=== PATIENT | female | born 1985 | race Caucasian/White ===

== ENCOUNTER → 2024-01-11 10:34 | Outpatient (REF) | payer OTHER, SELFPAY | LOC: RCS 10:34 | PROVIDERS: ATTENDING PHYSICIAN Internal Medicine Interventional Cardiology; FAMILY PHYSICIAN Internal Medicine | DX: I10 Essential (primary) hypertension (principal); R06.02 Shortness of breath; R00.0 Tachycardia, unspecified; R00.2 Palpitations; Z82.49 Family history of ischemic heart disease and other diseases of the circulatory system; R07.89 Other chest pain | CPT/HCPCS: 93017 ==

== ENCOUNTER 2025-05-29 12:24 | Emergency (ER) | payer OTHER, SELFPAY ==
[2025-05-29 12:29] VITALS: BP 145/96
--- NOTE | 2025-05-29 12:32 | ED.GENMED ---
History of Present Illness
General
Chief Complaint: Chest Pain
Source: patient
Exam Limitations: none
Time Seen by Provider: 05/29/25 12:31
History of Present Illness
History of Present Illness:
40yoF with no significant past medical history presenting for evaluation of chest pain. Patient woke up this morning around 7 AM noticing a discomfort in the right side of her chest. She describes a squeezing pain that is intermittent. Pain
radiates to the right axillary region. Pain seems to come on randomly and nothing seems to make the pain better or worse. She denies any trauma. She is otherwise asymptomatic and denies any shortness of breath, pleuritic pain, fevers, cough,
abdominal pain, rash, calf pain, leg swelling. Patient sees cardiology for recurrent dizziness. She had an exercise stress test in January 2024 which was normal.
Past History
Past History
ED Past Medical History: None; Negative IDDM
ED Past Surgical History: None
Patient has exhibited threatening behavior?: No
PSI?: No
Social History
Tobacco: Non-smoker
Alcohol: None
Drug: None
Personal:
Living: with family
Employment: Employed (hairdresser)
Family History
Family History: Other (Noncontributory)
Phy Exam
General Physical Exam
General Presentation: well appearing and no apparent distress
General Skin: warm and dry
General Habitus: normal
General Mental: alert
ENT Exam
ENT Exam: normocephalic
Cardiovascular Exam
Cardiovascular Exam: regular rate/rhythm, no edema, no murmur and normal peripheral pulses (2+ PT pulses bilaterally)
Pulmonary Exam
Pulmonary Exam: lungs clear, no respiratory distress, no rales, chest non tender, no crackles, no rhonchi and no wheezing
Neurological Exam
Neurological Exam: alert
[place] Coma Scale
Eye Opening: Spontaneous
Verbal Response: Oriented
Motor Response: Obeys Commands
GCS Total Score: 15
Skin Exam
Skin Exam: normal color and warm/dry
Psychiatric Exam
Psychiatric Exam: normal mood/affect
Scores
Heart Score for Chest Pain Patients
STEMI patient?: No
History: Slightly or Non-Suspicious
ECG: Normal
Age: </= 45 years
Risk Factors: No Risk Factors
Troponin: </= Normal Limit
Heart Score for Chest Pain Patients: 0
Heart Score Risk: 2.5% MACE over next 6 weeks
Course
Orders/Labs/Results
Orders:
Orders
05/29/25 12:25
Electrocardiogram (*1) Urgent
Reason for Study: Chest Pain
EKG- Treatment ONCE
05/29/25 12:42
Cardiac Monitoring- Treatment ONCE
05/29/25 12:50
Complete Blood Count/With Diff Urgent
Comprehensive Metabolic Panel Urgent
D-Dimer Urgent
Troponin I Urgent
05/29/25 13:28
CR Chest - 2 Views Urgent
Comment:
Reason For Exam: R sided chest pain
Abnormal Lab Results
05/29/25
12:50
WBC 4.6 L 10^3/uL
(4.8-10.8)
Hct 36.4 L %
(37.0-47.0)
05/29/25 12:50
05/29/25 12:50
Vital Signs
Initial and Last Documented VS:
Initial Vital Signs
Temp Pulse Resp BP Pulse Ox
98.4 F 83 18 145/96 100
05/29/25 12:29 05/29/25 12:29 05/29/25 12:29 05/29/25 12:29 05/29/25 12:29
Last Documented Vital Signs
Temp Pulse Resp BP Pulse Ox
98.4 F 71 15 107/92 99
05/29/25 12:29 05/29/25 15:15 05/29/25 15:15 05/29/25 15:00 05/29/25 15:15
MDM/Problems Addressed
Differential Diagnosis Includes:
40yoF here with intermittent R sided chest/axillary pain that began this morning. Otherwise asymptomatic. No pleuritic pain or SOB. VSS and oxygen saturation 100% on room air. No rash noted on exam and there is no reproducible chest tenderness.
Differential diagnosis includes but is not limited to: Musculoskeletal/muscle spasms, pneumonia, pleurisy, early shingles, doubt PE, doubt ACS
Initial ED plan: EKG obtained in triage shows NSR without ischemic changes. Will check cardiac labs, D-dimer, and CXR vs. CT depending on D-dimer results.
*Pulse Oximetry
SaO2: 100
Oxygen Mode of Delivery: Room air
Patient hypoxic: no
*EKG
Interpreted by ED Provider?: Yes
EKG Intrepretation Date: 05/29/25
Heart Rate: 77
Rate: normal
Rhythm: sinus
[place]: normal axis
Interval: normal interval
QRS Pattern: normal QRS
Ischemia: no ischemia
*Critical Care Note
Total Time (30-74mins, 75-104mins- exclusive of procedures): Not Applicable
Update Note
Update Note:
Labs unremarkable and troponin undetectable. D-dimer normal making PE very unlikely. Chest x-ray clear. HEART score is 0. No indication for hospitalization. Unclear etiology of symptoms. She was advised to monitor the area for a rash. Patient
instructed to follow-up with her PCP and ED return precautions reviewed. She was discharged in stable condition.
ED Attending Note
-
Portions of this chart may have been created with voice recognition software.� Occasional wrong word or��sound alike� substitutions may have occurred due to the inherent limitations of voice recognition software.
Discharge Plan
Departure
Patient Disposition: Home (Routine Discharge)
Date of Disposition: 05/29/25
Time of Disposition: 15:11
Patient with high blood pressure during this ER visit?: No
Discharge Problem:
Atypical chest pain
Instructions: Chest Pain PCP Follow Up
Prescriptions:
No Action
No Current Medications
0
Referrals:
Emily Murray, DO [Family Provider, Internal Medicine]
Activity Restrictions/Additional Instructions:
Please follow-up with your family doctor in 3-4 days. Return to the ER with any new or worsening symptoms.
Interventions
Interventions:
*Risk Screen - Suicide Last Done: 05/29/25 12:29
*General Assessment Last Done: 05/29/25 12:29
*Neglect/Abuse Screening Last Done: 05/29/25 12:52
*ED- Fall Risk Assessment Last Done: 05/29/25 12:52
*ED COVID-19 Vaccine History Last Done: 05/29/25 12:33
ED- Cardiac Assessment Last Done: 05/29/25 12:52
*Nursing Disposition Last Done: 05/29/25 15:34
Discharge Date and Time
Discharge Date/Time: 05/29/25 15:34
Print Language: LATVIAN
[2025-05-29 12:50] VITALS: BP 122/88
[2025-05-29 13:00] VITALS: BP 115/81
[2025-05-29 13:04] LABS: Hematocrit 36.4 % (37.0-47.0); Hemoglobin 12.2 g/dL (12.0-16.0); Mean Corp Hgb Conc. 33.5 g/dL (33.0-37.0); Mean Corpuscular Volume 84.7 fL (81.0-99.0); Nucleated Red Blood Cells % 0 %; Platelet Count 231 10^3/uL (130-400); Red Cell Dist. Width 12.0 % (11.5-14.5)
[2025-05-29 13:24] LABS: ALT (SGPT) 15 U/L (0-35); AST (SGOT) 19 U/L (14-36); Albumin 4.3 g/dl (3.5-5.0); Alkaline Phosphatase 60 U/L (38-126); Blood Urea Nitrogen 13 mg/dl (7-17); Calcium 9.5 mg/dl (8.4-10.2); Carbon Dioxide 25 mmol/L (22-30); Chloride 107 mmol/L (98-107); Glucose 94 mg/dl (70-99); Potassium 3.8 mmol/L (3.5-5.1); Sodium 138 mmol/L (135-145); Total Protein 7.2 g/dl (6.3-8.2); eGFR > 60.00
[2025-05-29 13:25] LABS: D-Dimer < 0.27 ug/mlFEU (0.00-0.50)
[2025-05-29 13:35] LABS: Troponin I < 0.012 ng/ml
[2025-05-29 14:14] VITALS: BP 115/89
[2025-05-29 15:00] VITALS: BP 107/92
== END 2025-05-29 15:34 | disposition home or self-care (01) ==
LOC: EMR 12:24
PROVIDERS: Physician Assistant; EMERGENCY PHYSICIAN Emergency Medicine; FAMILY PHYSICIAN Internal Medicine
DX: R07.89 Other chest pain (principal)
CPT/HCPCS: 99284; 71046; 80053; 84484; 85025; 85379; 93005